=== PATIENT | male | born 1960 | race African-American/Black ===

== ENCOUNTER → 2020-11-22 14:37 | Outpatient (BNVA) | payer OTHER, SELFPAY | PROVIDERS: PCP Internal Medicine; Visit Provider Physician Assistant ==

== ENCOUNTER 2021-05-22 07:50 | Outpatient (REF) | payer OTHER, SELFPAY | END 2021-05-22 07:51 | disposition home or self-care (01) | LOC: HO.LAB 07:50 | PROVIDERS: PCP Internal Medicine; Visit Provider Internal Medicine | DX: Z20.822 Contact with and (suspected) exposure to COVID-19 (principal) | CPT/HCPCS: C9803; U0003; U0005 ==